=== PATIENT | male | born 1995 | race Caucasian/White ===

== ENCOUNTER 2018-04-29 13:34 | Emergency (ER) | payer OTHER ==
--- NOTE | 2018-04-29 14:43 | EDPHY ---
H & P Time Seen by Provider: 04/29/18 13:35 HPI/ROS: Chief complaint. Head injury HPI. Patient is 22-year-old male fell hitting his head while skiing. He was able to ski down. Brief loss of consciousness. Brief episode of repetitive questioning. Feeling better now. Denies neck chest abdominal back or extremity pain. ROS 10 systems were reviewed and negative with the exception of the elements mentioned in the history of present illness Past Medical/Surgical History: Healthy Social History: Nonsmoker, no alcohol Smoking Status: Never smoked Physical Exam: General Appearance: Alert well-developed male mild distress vital signs are stable Eyes: Pupils equal and round no pallor or injection. ENT, no hemotympanum or Cabrera sign. No oral pharyngeal or dental trauma. No obvious trauma to the head Respiratory: There are no retractions, lungs are clear to auscultation. Cardiovascular: Regular rate and rhythm. Gastrointestinal: Abdomen is soft and nontender, no masses, bowel sounds normal. Neurological: Awake and alert, sensory and motor exams grossly normal. Skin: Warm and dry, no rashes. Musculoskeletal: Neck is supple nontender. No T, L, S spine tenderness Extremities symmetrical, full range of motion. Psychiatric: Patient is oriented X 3, there is no agitation. Constitutional: Initial Vital Signs Temperature (C) 36.8 C 04/29/18 13:39 Heart Rate 95 04/29/18 13:39 Respiratory Rate 18 04/29/18 13:39 Blood Pressure 145/68 H 04/29/18 13:39 O2 Sat (%) 96 04/29/18 13:39 O2 Delivery Mode Room Air Allergies/Adverse Reactions: cephalexin [From Keflex] Allergy (Mild, Verified 04/29/18 13:41) Hives Home Medications: Medication Instructions Recorded Miscellaneous Medical Supply [NO 08/24/12 HOME MEDS] Medical Decision Making ED Course/Re-evaluation: Patient is alert and conversational and neurologically intact. Patient and I discussed treatment plan including criteria for return importance of follow-up and further evaluation. Head injury instructions are given by me Differential Diagnosis: Patient has had a concussion. No evidence for continued neurologic symptoms. I do not think the patient has skull fracture or intracranial bleeding. Departure - Departure Disposition: Home, Routine, Self-Care Clinical Impression: Concussion Condition: Good Instructions: Concussion (ED) Additional Instructions: Easy activity. Tylenol and Advil as needed for headache Return for worsening headache, confusion, vomiting No activity that may result in head injury for 1 week Referrals: NONE *PRIMARY CARE P,. [Primary Care Provider] - As per Instructions Mabel Barnhart MD [Medical Doctor] - 5-7 days, if not improved
[2018-04-29 15:32] VITALS: BP 130/58
== END 2018-04-29 15:31 | disposition home or self-care (01) ==
LOC: EDUNIT#
DX: S06.0X1A Concussion with loss of consciousness of 30 minutes or less, initial encounter (principal); V00.321A Fall from snow-skis, initial encounter; Y93.23 Activity, snow (alpine) (downhill) skiing, snowboarding, sledding, tobogganing and snow tubing